=== PATIENT | female | born 1950 ===

== ENCOUNTER 2017-07-13 10:00 | Inpatient (IN) | payer OTHER ==
[~2017-07-13] VITALS: Ht 152.4 cm; Wt 59.0 kg
[2017-07-13] MEDS ORDERED: PREVASTATIN PO (12:30)
[2017-07-13] MEDS ORDERED: NORVASC5 MG PO (12:30)
[2017-07-13] MEDS ORDERED: TOPROL XL25 M1 PO (12:30)
[2017-07-13] MEDS ORDERED: GRALISE300 MG PO (12:31)
== END 2017-07-22 16:27 | disposition home or self-care (01) | DRG 331 ==
LOC: SURH 07-20 06:43 → O/R 07-20 06:43 → SURG 07-20 10:00 → SURH 07-20 15:08
PROVIDERS: Colon & Rectal Surgery
PROC: 07TC4ZZ Resection of Pelvis Lymphatic, Percutaneous Endoscopic Approach (ICD-10-PCS; 2017-07-20)
PROC: 0DTF4ZZ Resection of Right Large Intestine, Percutaneous Endoscopic Approach (ICD-10-PCS; principal; 2017-07-20 12:15)
DX: C18.0 Malignant neoplasm of cecum (principal); R59.0 Localized enlarged lymph nodes; I11.9 Hypertensive heart disease without heart failure; R73.01 Impaired fasting glucose; J30.89 Other allergic rhinitis; G51.0 Bell's palsy

== ENCOUNTER 2017-11-11 08:41 | Outpatient (CLI) | payer OTHER ==
[~2017-11-11 08:41] MED LIST: GRALISE300 MG PO; NORVASC5 MG PO; PREVASTATIN PO; TOPROL XL25 M1 PO
== END 2017-11-11 08:58 | disposition home or self-care (01) ==
LOC: LAB 08:41
DX: C18.0 Malignant neoplasm of cecum (principal); D51.3 Other dietary vitamin B12 deficiency anemia; D51.1 Vitamin B12 deficiency anemia due to selective vitamin B12 malabsorption with proteinuria; I10 Essential (primary) hypertension; E78.2 Mixed hyperlipidemia; A60.09 Herpesviral infection of other urogenital tract; D50.8 Other iron deficiency anemias; D51.8 Other vitamin B12 deficiency anemias; R97.0 Elevated carcinoembryonic antigen [CEA]

== ENCOUNTER 2018-07-14 06:15 | Day surgery (SDC) | payer OTHER | END 2018-07-14 10:50 | disposition home or self-care (01) | LOC: AMB-ENDOS 06:15 | DX: K57.30 Diverticulosis of large intestine without perforation or abscess without bleeding (principal); K64.1 Second degree hemorrhoids ==